=== PATIENT | female | born 1990 | race Caucasian/White ===

== ENCOUNTER 2016-06-01 10:06 | Emergency (ER) | payer OTHER ==
[2016-06-01 10:24] VITALS: BP 117/83; PULSE 71; TEMP 98.6; BMI 26.1
--- NOTE | 2016-06-01 11:25 | PDOC ---
History of Present Illness - General Chief Complaint: Pain, Acute Stated Complaint: RT KNEE PAIN Time Seen by Provider: 06/01/16 11:14 History Source: Patient Exam Limitations: No Limitations - History of Present Illness Initial Comments: 06/01/16 11:58 Chief complaint: Right knee pain and buckling of right knee History of present illness: Patient is a 26-year-old female with no significant medical problems here today complaining of right knee pain with buckling of her right knee since falling while skiing and twisting her right knee on 2015. Patient was seen by medical staff at [facility] was given a knee immobilizer, pt. had xray rt. knee, patient has not seen an orthopedist. The pain is worse with any movement of her right knee in a twisting motion. Patient reports the pain can be as much as a 7 out of 10 sharp in nature. Patient reports that her right knee was very edematous right after incident and is slightly edematous in the right lateral suprapatellar area presently. Patient denies any numbness of her leg or knee. Patient is able to straighten and flex her knee as usual however that it is painful. Occurred: reports: other (05/21/16) Severity: Yes: moderate (right knee ) Lower Extremity Pain Location: right: knee (anterior/lateral knee) Method of Injury: Yes: sports injury (fell twisting rt. knee ) Modifying Factors: improves with: immobilization Lower Ext. Injury Location - Specific Injury Location Knees: right swelling (rt. lateral ), right pain (rt. anterior/lateral knee pain ) Extremity Pain Location - Extremity Pain Location Extremity Pain Locations: right: knee (anterior/lateral knee) Past History - Past Medical History Allergies/Adverse Reactions: Allergies Allergy/AdvReac Type Severity Reaction Status Date / Time No Known Allergies Allergy Verified 04/28/16 11:03 Home Medications: Ambulatory Orders NK [No Known Home Medication] 06/01/16 Other medical history: denies - Surgical History Appendectomy: Yes - Immunization History Immunization Up to Date: Yes - Psycho/Social/Smoking Cessation Hx Anxiety: No Suicidal Ideation: No Smoking History: Current some day smoker Have you smoked in the past 12 months: Yes Number of Cigarettes Smoked Daily: 1 Information on smoking cessation initiated: No Hx Alcohol Use: No Drug/Substance Use Hx: No Substance Use Type: None Review of Systems - Review of Systems Able to Perform ROS?: Yes Constitutional: No: Symptoms Reported HEENTM: No: Symptoms Reported Respiratory: No: Symptoms reported Cardiac (ROS): No: Symptoms Reported ABD/GI: No: Symptoms Reported : No: Symptoms Reported Musculoskeletal: Yes: Joint Pain (rt. anterior/lateral knee pain), Joint Swelling (rt. lateral knee pain ) Integumentary: No: Symptoms Reported Neurological: No: Symptoms reported *Physical Exam - Vital Signs Last Vital Signs Temp Pulse Resp BP Pulse Ox 98.6 F 71 20 117/83 100 06/01/16 10:22 06/01/16 10:22 06/01/16 10:22 06/01/16 10:22 06/01/16 10:22 - Physical Exam General Appearance: Yes: Appropriately Dressed Vascular Pulses: Dorsalis-Pedis (R): 4+ Extremity: positive: Normal Capillary Refill, Normal Inspection, Normal Range of Motion, Tender (rt. lateral knee, anterior ), Swelling (rt. lateraL suprapatella ), Other (negative anterior/posterior drawer) Neurologic: positive: Respond to painful stimul, Responsive. negative: Sensory Deficit (rt. knee ) Medical Decision Making - Medical Decision Making 06/01/16 12:01 Patient is a 26-year-old female with no significant medical problems here today complaining of right knee pain with buckling of her right knee since falling while skiing and twisting her right knee on 05/21/2016. Patient was seen by medical staff at [facility] was given a knee immobilizer, pt. had xray rt. knee, patient has not seen an orthopedist. The pain is worse with any movement of her right knee in a twisting motion. Patient reports the pain can be as much as a 7 out of 10 sharp in nature. Patient reports that her right knee was very edematous right after incident and is slightly edematous in the right lateral suprapatellar area presently. Patient denies any numbness of her leg or knee. Patient is able to straighten and flex her knee as usual however that it is painful. She is requesting an MRI or to see an orthopedist here to get a prescription for an MRI now. right knee pain with slight swelling of the right suprapatellar lateral area PLAN: ortho referral The patient that she would not be able to get an MRI here now or to give an Rx for an MRI that she must follow up with orthopedist Patient has right knee immobilizer *DC/Admit/Observation/Transfer Diagnosis at time of Disposition: Right knee pain Qualifiers: Chronicity: acute Qualified Code(s): M25.561 - Pain in right knee - Discharge Dispostion Disposition: HOME Condition at time of disposition: Stable - Referrals Referrals: Abilio Granda MD [Staff Physician] - - Patient Instructions Additional Instructions: You must follow up with orthopedist as soon as possible Wear your right knee immobilizer as previously given to you Ibuprofen or acetaminophen as needed as directed by tank inspector for pain Patient voiced understanding of discharge instructions and all questions were answered
== END 2016-06-01 11:57 | disposition home or self-care (01) ==
LOC: JERFT 10:06
PROC: 2W3QX1Z Immobilization of Right Lower Leg using Splint (ICD-10-PCS; principal; 2016-06-01)
DX: M25.561 Pain in right knee (principal); X58.XXXA Exposure to other specified factors, initial encounter; Y93.23 Activity, snow (alpine) (downhill) skiing, snowboarding, sledding, tobogganing and snow tubing; Y92.828 Other wilderness area as the place of occurrence of the external cause; F17.210 Nicotine dependence, cigarettes, uncomplicated
CPT/HCPCS: 99281-25

== ENCOUNTER 2016-08-31 19:03 | Emergency (ER) | payer OTHER ==
[2016-08-31 19:15] VITALS: BP 121/81; PULSE 104; TEMP 99.9; BMI 58.8
--- NOTE | 2016-08-31 19:22 | PDOC ---
History of Present Illness - History of Present Illness Initial Comments: 08/31/16 20:29 Patient is a 26 year old female who is presenting to the ED with abdominal pain and bloating for two days. The patient complains of constant, stabbing abdominal pain that is localized to the lower quadrants, specifically to the right, suprapubic region, and the epigastric region. The patient states that nothing makes it better or worse; she rates her pain 10/10 in severity. She also endorses some nausea and subjective fevers last night but no vomiting or diarrhea. The patients last BM was this morning and it was normal. Denies dysuria. The patient is on oral contraceptives and is due for her menses this week. The patients last sexual encounter was two months ago. Her LNMP was last month. Denies any foul odor or vaginal discharge. Surgical Hx: appendectomy, PAST MEDICAL HISTORY: no significant history PAST SURGICAL HISTORY: appendectomy FAMILY HISTORY: no pertinent history SOCIAL HISTORY: Pt lives with family and is employed. MEDICATIONS: reviewed ALLERGIES: As per nursing notes General: Subjective fevers. No chills, no weakness, no weight loss HEENT: No change in vision. No sore throat,. No ear pain CardioVascular: No chest pain or shortness of breath Respiratory:No cough, or wheezing. Gastrointestinal: Abdominal pain, distention, nausea. no vomiting, diarrhea or constipation, No rectal bleeding Genitourinary: No dysuria, hematuria, or frequency Musculoskeletal: No joint or muscle pain or swelling Neurologic: No headache, vertigo, dizziness or loss of consciousness Psychiatric: nor depression Skin: No rashes or easy bruising Endocrine: no increased thirst or abnormal weight change Allergic: no skin or latex allergy All other systems reviewed and normal General: Well-nourished well-developed individual, no acute distress HEENT: Throat: Normal, tonsils normal, no erythema or exudate Neck: Supple, no meningeal signs, no lymphadenopathy Eyes::Pupils equal reactive and round, extraocular motion intact Chest: Nontender to palpation Cardiac: Soft systolic flow murmur. S1-S2 normal, regular rate and rhythm, no rubs or gallops Respiratory: Lungs clear to auscultation bilateral Abdomen: Mildly distended, soft, tenderness on palpation RUQ and across lower abdomen. No guarding, but rebound. Bowel sounds are normal. Extremities: Warm, dry, no cyanosis, clubbing, or edema Skin: No rashes Neuro: Alert and oriented x3, nonfocal exam, grossly intact, normal gait Psych: Normal mood and affect Pelvic: Upon external evaluation, genitalia is normal with no visible discharge. On speculum exam, there is a moderate amount of whitish and yellow discharge with yellowish discharge from the cervix. There is some erythema and excoriation of the cervical os. There is no foul odor noted. Positive cervical motion tenderness. Mild bilateral adnexal tenderness. <Nayeli Byrd - Last Filed: 08/31/16 20:28> - General History Source: Patient Exam Limitations: No Limitations - History of Present Illness Initial Comments: 08/31/16 23:44 A portion of this note was documented by scribe services under my direction. I have reviewed the details of the note, within reason, and agree with the documentation. The case summary and management plan written by me. Assessment and plan: This is 26-year-old female who comes in complaining of right-sided abdominal pain. Patient had a complete workup including blood work and CAT scan. Patient's blood work was unremarkable and her white count was normal there was no left shift and her test was normal negative. Patient had a pelvic exam that was concerning for a STD with some cervical motion as well as bilateral mild adnexal tenderness. GC and chlamydia cultures were sent and she was treated for STDs. Patient is CAT scan showed thickening of the terminal ileum consistent with either an infectious or inflammatory etiology. Patient was given prednisone here in the emergency room for 2 weeks worth and then a taper and referred to a home sales service professional. Patient discharged home with her mother. <Vivi Rosas I - Last Filed: 08/31/16 23:50> - General Chief Complaint: Pain, Acute Stated Complaint: ABD PAIN/BLOATING Time Seen by Provider: 08/31/16 19:21 Past History <Nayeli Byrd - Last Filed: 08/31/16 20:28> - Surgical History Appendectomy: Yes - Immunization History Immunization Up to Date: Yes - Psycho/Social/Smoking Cessation Hx Anxiety: No Suicidal Ideation: No Smoking History: Current some day smoker Have you smoked in the past 12 months: Yes Number of Cigarettes Smoked Daily: 1 Information on smoking cessation initiated: Yes 'Breaking Loose' booklet given: 08/31/16 Hx Alcohol Use: No Drug/Substance Use Hx: No Substance Use Type: None <Vivi Rosas I - Last Filed: 08/31/16 23:50> - Past Medical History Allergies/Adverse Reactions: Allergies Allergy/AdvReac Type Severity Reaction Status Date / Time No Known Allergies Allergy Verified 04/28/16 11:03 Home Medications: Ambulatory Orders Methylprednisolone [Medrol Dose Raul] 4 mg PO ASDIR #21 tablet 08/31/16 Prednisone [Deltasone -] 40 mg PO DAILY #28 tablet 08/31/16 *Physical Exam - Vital Signs Last Vital Signs Temp Pulse Resp BP Pulse Ox 99.9 F H 104 H 16 121/81 98 08/31/16 19:04 08/31/16 19:04 08/31/16 19:04 08/31/16 19:04 08/31/16 19:04 <Nayeli Byrd - Last Filed: 08/31/16 20:28> - Vital Signs Last Vital Signs Temp Pulse Resp BP Pulse Ox 99.9 F H 104 H 16 121/81 98 08/31/16 19:04 08/31/16 19:04 08/31/16 19:04 08/31/16 19:04 08/31/16 19:04 <Vivi Rosas I - Last Filed: 08/31/16 23:50> ED Treatment Course - LABORATORY CBC & Chemistry Diagram: 08/31/16 20:29 08/31/16 20:29 <Vivi Rosas I - Last Filed: 08/31/16 23:50> *DC/Admit/Observation/Transfer - Attestations Scribe Attestion: 08/31/16 20:31 Documentation prepared by Nayeli Byrd, acting as medical examiner for Vivi Rosas MD. <Nayeli Byrd - Last Filed: 08/31/16 20:28> <Vivi Rosas I - Last Filed: 08/31/16 23:50> Diagnosis at time of Disposition: PID (acute pelvic inflammatory disease) Ileitis, terminal Qualifiers: Digestive disease complication type: without complication Qualified Code(s): K50.00 - Crohn's disease of small intestine without complications - Discharge Dispostion Disposition: HOME Condition at time of disposition: Stable - Prescriptions Prescriptions: Prednisone [Deltasone -] 40 mg PO DAILY #28 tablet Methylprednisolone [Medrol Dose Raul] 4 mg PO ASDIR #21 tablet - Patient Instructions Additional Instructions: You were fully treated for pelvic infections including chlamydia and gonorrhea. Ear cultures were sent and if they are positive we will notify you. If they are positive your partner will need to be treated as well. Your CAT scan showed inflammation of the terminal portion of your small intestines. Your being given an anti-inflammatory prednisone which she will take 2 tablets a day for the next 2 weeks. After that you will start the Medrol Dosepak which is a taper of the prednisone you have been taking. It is very important that you call a GI doctor and get an appointment to follow- up as soon as possible. If you need a GI doctor call at [phone] for an appointment. Return to the emergency department immediately with ANY new, persistent or worsening symptoms. Continue any medications as previously prescribed by your physician. You should follow up with your primary doctor as soon as possible regarding today's emergency department visit. . Please make sure your doctor reviews the results of your emergency evaluation. Thank you for coming to the Emergency Department today for your care. It was a pleasure to see you today. Please note that your evaluation is INCOMPLETE until you follow-up with your doctor.
[2016-08-31] MEDS ORDERED: morphine CARPU-JECT 4 MG/1 ML DISP.SYRIN IVPUSH ONE (20:31)
[2016-08-31] MEDS ORDERED: CEFTRIAXONE 500 MG in DEXTROSE 5%-WATER - 50 ML IVPB ONE (20:32)
[2016-08-31] MEDS ORDERED: morphine CARPU-JECT 10 MG/1 ML DISP.SYRIN ONE (20:38)
[2016-08-31] MEDS ORDERED: cefTRIAXone SODIUM 1 GM VIAL ONE (20:38)
[2016-08-31 20:40] LABS: BASOPHIL 0.3 % (0-2.0); EOSINOPHIL 0.1 % (0-4.5); MCH 29.2 pg (25.7-33.7); MCHC 33.6 g/dl (32.0-36.0); MEAN CELL VOLUME 86.8 fl (80-96); MEAN PLT VOLUME 8.9 fl (7.5-11.1); NEUTROPHILS 77.7 % (42.8-82.8); PLATELET COUNT 223 K/MM3 (134-434); RDW 13.1 % (11.6-15.6)
[2016-08-31 20:54] LABS: ALBUMIN 3.6 g/dl (3.5-5.0); ALK PHOS 42 U/L (32-92); ANION GAP 7 (8-16); BILIRUBIN,TOTAL 0.6 mg/dl (0.2-1.0); CO2 25 mmol/L (22-28); COCKROFT - GAULT 245.65; CREATININE 0.8 mg/dl (0.6-1.3); GLUCOSE,RANDOM 93 mg/dl (74-106); SGOT/AST 32 U/L (10-42); SGPT/ALT 21 U/L (10-40); TOT PROT 6.7 g/dl (6.4-8.3)
[2016-08-31 21:30] LABS: PH,URINE 6.5 (4.5-8); URINE APPEARANCE Clear; URINE BILIRUBIN Negative (NEGATIVE); URINE GLUCOSE (UA) Negative (NEGATIVE); URINE KETONE Trace (NEGATIVE); URINE LEUK ESTERASE Negative (NEGATIVE); URINE NITRITE Negative (NEGATIVE); URINE PROTEIN Negative (NEGATIVE); URINE UROBILINOGEN 0.2 E.U/dl (0.2-1.0)
[2016-08-31 21:33] LABS: URINE BLOOD 2+ (NEGATIVE); URINE COLOR YELLOW
[2016-08-31 22:03] LABS: URINE BACTERIA FEW /hpf (NEGATIVE); URINE WBC 0-2 (3-5)
[2016-08-31] MEDS ORDERED: AZITHROMYCIN 1 GM PACKET PO ONE (23:41)
[2016-08-31] MEDS ORDERED: DEXAMETHASONE SOD PHOSPHATE 10 MG/1 ML VIAL IVPUSH ONE (23:41)
[2016-08-31] MEDS ORDERED: AZITHROMYCIN 250 MG TABLET (FP) ONE (23:53)
[2016-08-31] MEDS ORDERED: DEXAMETHASONE SOD PHOSPHATE 10 MG/1 ML VIAL ONE (23:53)
== END 2016-09-01 00:05 | disposition home or self-care (01) ==
LOC: FER 19:03
PROC: 3E03329 Introduction of Other Anti-infective into Peripheral Vein, Percutaneous Approach (ICD-10-PCS; principal; 2016-08-31)
PROC: 3E033NZ Introduction of Analgesics, Hypnotics, Sedatives into Peripheral Vein, Percutaneous Approach (ICD-10-PCS; 2016-08-31)
PROC: 3E033GC Introduction of Other Therapeutic Substance into Peripheral Vein, Percutaneous Approach (ICD-10-PCS; 2016-08-31)
DX: K50.00 Crohn's disease of small intestine without complications (principal); N73.9 Female pelvic inflammatory disease, unspecified
CPT/HCPCS: 36415; 74177-TC; 80053; 81003; 81015; 83690; 84703; 85025; 87491; 87591; 99283-25

== ENCOUNTER 2016-10-19 10:25 | Emergency (ER) | payer OTHER ==
--- NOTE | 2016-10-19 10:32 | PDOC ---
History of Present Illness - General Chief Complaint: Sore Throat Stated Complaint: SORE THROAT Time Seen by Provider: 10/19/16 10:27 History Source: Patient Exam Limitations: No Limitations - History of Present Illness Initial Comments: 10/19/16 10:30 Healthy 26 yo with sore throat and swollen glands and fever for the past 4 days. Nyquil and Dayquil not helping. No PMH, No MEDS, No Allergies Timing/Duration: 1 week, getting worse Severity: mild Associated Symptoms: reports: cough, fever/chills, other (swollen glands) Past History - Past Medical History Allergies/Adverse Reactions: Allergies Allergy/AdvReac Type Severity Reaction Status Date / Time No Known Allergies Allergy Verified 10/19/16 10:27 Home Medications: Ambulatory Orders Amoxicillin - [Amoxicillin 500mg Capsule -] 500 mg PO TID #30 capsule 10/19/16 - Surgical History Appendectomy: Yes - Immunization History Immunization Up to Date: Yes - Psycho/Social/Smoking Cessation Hx Anxiety: No Suicidal Ideation: No Smoking History: Current some day smoker Have you smoked in the past 12 months: Yes Number of Cigarettes Smoked Daily: 1 'Breaking Loose' booklet given: 08/31/16 Hx Alcohol Use: No Drug/Substance Use Hx: No Substance Use Type: None Review of Systems - Review of Systems Constitutional: Yes: See HPI HEENTM: Yes: See HPI Respiratory: Yes: Cough Cardiac (ROS): No: Symptoms Reported ABD/GI: No: Symptoms Reported : No: Symptoms Reported Musculoskeletal: No: Symptoms Reported Integumentary: No: Symptoms Reported Neurological: No: Symptoms reported Psychiatric: No: Anxiety, Depression Endocrine: No: Symptoms Reported Hematologic/Lymphatic: Yes: Symptoms Reported, Swollen Glands All Other Systems: Reviewed and Negative *Physical Exam - Physical Exam General Appearance: No: Apparent Distress HEENT: positive: Pharyngeal Erythema Neck: positive: Supple, Lymphadenopathy (R), Lymphadenopathy (L) Respiratory/Chest: positive: Lungs Clear, Normal Breath Sounds Cardiovascular: positive: Regular Rhythm, Regular Rate. negative: Murmur Gastrointestinal/Abdominal: positive: Normal Bowel Sounds, Flat, Soft Rectal Exam: positive: deferred Lymphatic: positive: Adenopathy Neurologic: positive: Fully Oriented, Alert *DC/Admit/Observation/Transfer Diagnosis at time of Disposition: Acute cervical adenitis Pharyngitis Qualifiers: Pharyngitis/tonsillitis etiology: unspecified etiology Qualified Code(s): J02.9 - Acute pharyngitis, unspecified - Discharge Dispostion Disposition: HOME Condition at time of disposition: Improved - Prescriptions Prescriptions: Amoxicillin - [Amoxicillin 500mg Capsule -] 500 mg PO TID #30 capsule - Patient Instructions Printed Discharge Instructions: DI for Pharyngitis/Tonsillopharyngitis -- Adult Additional Instructions: Ines- Start the Amoxicillin later today - you need two doses today, then three times a day. (We gave you your first dose here). Return to us if worse. Salt water gargles, tea, tylenol or Motrin for fever. Best- Dr. Dewey Riojas
[2016-10-19 10:34] VITALS: BP 109/66; PULSE 77; TEMP 98.5; BMI 24.0
[2016-10-19] MEDS ORDERED: AMOXICILLIN 500 MG CAPSULE (FP) PO ONE (10:34)
[2016-10-19] MEDS ORDERED: AMOXICILLIN 250 MG CAPSULE ONE (10:42)
== END 2016-10-19 10:40 | disposition home or self-care (01) ==
LOC: FER 10:25
DX: L04.0 Acute lymphadenitis of face, head and neck (principal); J02.9 Acute pharyngitis, unspecified; F17.210 Nicotine dependence, cigarettes, uncomplicated
CPT/HCPCS: 99282-25